=== PATIENT | male | born 1970 ===

== ENCOUNTER 2022-05-26 14:09 | Emergency (ER) | payer OTHER, SELFPAY ==
[2022-05-26 14:21] VITALS: BP 117/79; PULSE 103; RESP 16; TEMP 36; O2SAT 98
--- NOTE | 2022-05-26 15:14 | ED.URI ---
HPI - URI/Sore Throat General Chief Complaint: Upper Respiratory Infection Stated Complaint: Congestion Time Seen by Provider: 05/26/22 15:00 Source: patient, RN notes reviewed and old records reviewed Mode of arrival: ambulatory Limitations: no limitations History of Present Illness HPI Narrative: 52-year-old male presents to [facility] with 3 week duration of sinus congestion, sinuses feel plugged with complaints of headaches intermittently. Patient reports that he has history of sinus problems and infections. He states that he has been taking Tylenol, Silvina [place] cold, Sudafed, Claritin and Zyrtec OTC and also NyQuil at bedtime. Patient reports no know fevers. Patient reports that he has had sinus infections in the past. MD elicited complaint: rhinorrhea, nasal congestion and sinus pain Onset (ago): week(s) (3) Treatments prior to arrival: acetaminophen, cold medicine and other (Sudafed, claritin. Zyrtec) Related Data Home Medications Medication Instructions Recorded Confirmed aspirin 81 mg tablet 81 mg PO DAILY 05/26/22 05/26/22 cyclobenzaprine 10 mg tablet 10 mg PO DAILY 05/26/22 05/26/22 esomeprazole magnesium 20 mg 20 mg PO DAILY 05/26/22 05/26/22 capsule,delayed release (Nexium) fluoxetine 10 mg capsule (Prozac) 30 mg PO DAILY 05/26/22 05/26/22 Allergies Allergy/AdvReac Type Severity Reaction Status Date / Time Quinolones Allergy Severe ANAPHYLACTIC Verified 05/26/22 14:37 REACTION levofloxacin Allergy Unknown Unknown Unverified 05/26/22 14:37 Review of Systems Review of Systems: CONSTITUTIONAL: Denies fever, chills, or sweats. EYES: Denies visual changes, redness, or discharge. ENT: Reports no acute rhinorrhea but feels congestion and sinus pressure, no sore throat, or otalgia. CARDIOVASCULAR: Denies chest pain, palpitations, or edema. RESPIRATORY: Denies cough or dyspnea. GASTROINTESTINAL: Denies abdominal pain, nausea, vomiting, or diarrhea. GENITOURINARY: Denies dysuria or hematuria. SKIN: Denies rash or itching. MUSCULOSKELETAL: Denies back pain, joint pain, or myalgia. NEUROLOGIC: reports headache, numbness, or weakness. PSYCHIATRIC: Positive for anxiety or depression. All systems reviewed & are unremarkable except as noted in HPI and below PMFSH Past Medical History Medical History (Updated 06/01/22 @ 14:02 by Dianelys Lara NP) Anxiety and depression IBS (irritable bowel syndrome) Traumatic brain injury Surgical History Surgical History (Updated 06/01/22 @ 14:05 by Dianelys Lara NP) History of thoracic surgery Traumatic injury to right rib cage with screws and plate Hx of appendectomy Family History Family History (Updated 06/01/22 @ 14:06 by Dianelys Lara NP) Father Heart disease Diabetes mellitus Mother Diabetes mellitus Social History Social History (Updated 06/01/22 @ 14:06 by Dianelys Lara NP) Smoking status: Former smoker Alcohol intake: current Alcohol use details: social Substance use: current Substance use type: marijuana Gender identity (if verbalized by the patient): Male Comments At time of signature, agree with nursing past medical, surgical, social and family history. There is no relevant family history pertinent to the presenting complaint Exam Narrative: GENERAL: Well-appearing, well-nourished, and in no acute distress. HEAD: Normocephalic, atraumatic. EYES: PERRLA and EOMI. ENT: Nares with membranes red with some clear rhinorrhea no epistaxis. Mucous membranes moist.TM's normal with good light reflex, throat with some redness with post nasal drainage noted, positive for facial pressure and intermittent headache pain NECK: Supple.no lymphadenopathy CHEST: Clear to auscultation. No respiratory distress. SAO2 98% on room air HEART: Regular rate and rhythm. No murmur heard. Normal peripheral pulses. ABDOMEN: Soft, nontender, nondistended, normal active bowel sounds. EXTREMITIES: Normal range of motion. No edema. SKIN: War
== END 2022-05-26 15:33 | disposition home or self-care (01) ==
PROVIDERS: Emergency Provider Registered Nurse
DX: J01.40 Acute pansinusitis, unspecified (principal); Z79.82 Long term (current) use of aspirin
CPT/HCPCS: 99213; G0463

== ENCOUNTER 2022-08-31 19:10 | Emergency (ER) | payer OTHER, SELFPAY ==
[2022-08-31 19:17] VITALS: BP 117/84; PULSE 87; RESP 18; TEMP 36.7; O2SAT 96
[2022-08-31] MEDS: TETANUS,DIPHTHERIA,AC PERTUSSIS ADULT (0.5 ML) BOOSTRIX IM (20:22)
--- NOTE | 2022-08-31 20:37 | ED.WOUNDLAC ---
HPI - Wound/Laceration General Chief Complaint: Wound/Laceration Stated Complaint: Cut Finger Rt Hand Time Seen by Provider: 08/31/22 20:15 Source: patient Mode of arrival: ambulatory Limitations: no limitations History of Present Illness HPI narrative: Patient presents today with a laceration to his left 3rd finger after cutting it on a pine apple-core at home does prior to arrival. Currently rates his pain /10. He is not up-to-date on his tetanus vaccine. Denies numbness or tingling. He did clean the finger just after injury. Related Data Home Medications Medication Instructions Recorded Confirmed aspirin 81 mg tablet 81 mg PO DAILY 05/26/22 08/31/22 cyclobenzaprine 10 mg tablet 10 mg PO DAILY 05/26/22 08/31/22 esomeprazole magnesium 20 mg 20 mg PO DAILY 05/26/22 08/31/22 capsule,delayed release (Nexium) fluoxetine 10 mg capsule (Prozac) 30 mg PO DAILY 05/26/22 08/31/22 Allergies Allergy/AdvReac Type Severity Reaction Status Date / Time Quinolones Allergy Severe ANAPHYLACTIC Verified 05/26/22 14:37 REACTION levofloxacin Allergy Unknown Unknown Verified 08/31/22 20:25 Review of Systems Review of Systems: CONSTITUTIONAL: Denies body aches, fever, chills, or sweats. EYES: Denies visual changes, redness, or discharge. ENT: Denies rhinorrhea, congestion, sore throat, or otalgia. CARDIOVASCULAR: Denies chest pain, palpitations, or edema. RESPIRATORY: Denies cough or dyspnea. GASTROINTESTINAL: Denies abdominal pain, nausea, vomiting, or diarrhea. GENITOURINARY: Denies dysuria or hematuria. SKIN: Denies rash, itching. + right 2nd finger laceration MUSCULOSKELETAL: Denies back pain, joint pain, or myalgia. NEUROLOGIC: Denies headache, numbness, tingling, or weakness. PSYCH: Denies depression or anxiety. [facility] Past Medical History Medical History Anxiety and depression IBS (irritable bowel syndrome) Traumatic brain injury Surgical History Surgical History History of thoracic surgery Traumatic injury to right rib cage with screws and plate Hx of appendectomy Family History Family History Father Heart disease Diabetes mellitus Mother Diabetes mellitus Social History Social History Smoking status: Former smoker Alcohol intake: current Alcohol use details: social Substance use: current Substance use type: marijuana Gender identity (if verbalized by the patient): Male Comments At time of signature, I have reviewed and agree with nursing past medical, surgical, social and family history unless otherwise noted. Please see nursing chart for further information. There is no relevant family history pertinent to the presenting complaint Exam Narrative: GENERAL: Well-appearing, well-nourished, and in no acute distress. HEAD: Normocephalic, atraumatic. EYES: EOMI. No redness or drainage. Conjunctivae normal. ENT: Mucous membranes pink and moist. NECK: Normal AROM. CHEST: No respiratory distress. EXTREMITIES: Normal range of motion. No edema. SKIN: Warm, dry, no rash. Capillary refill normal. Normal skin turgor. Right 2nd finger:4 cm full thickness flap laceration to the lateral pad of the finger. Distal sensation intact. Capillary refill normal. Full range of motion. Mild active bleeding. NEURO: No focal deficits. Alert and oriented x3. Gait steady. PSYCH: Normal affect. No signs of depression or anxiety. Course Course Level of Care: Express Care Visit Vital Signs Vital signs: Vital Signs Temperature 98.0 F 08/31/22 19:17 Pulse Rate 87 08/31/22 19:17 Respiratory Rate 18 08/31/22 19:17 Blood Pressure 117/84 08/31/22 19:17 Pulse Oximetry 96 08/31/22 19:17 Oxygen Delivery Room Air 08/31/22 19:17 [place]
== END 2022-08-31 21:05 | disposition home or self-care (01) ==
PROVIDERS: Emergency Provider Nurse Practitioner
DX: S61.210A Laceration without foreign body of right index finger without damage to nail, initial encounter (principal); W27.8XXA Contact with other nonpowered hand tool, initial encounter; Z23 Encounter for immunization; Z87.891 Personal history of nicotine dependence; F41.9 Anxiety disorder, unspecified; F32.A Depression, unspecified
CPT/HCPCS: 12002; 90471; 90715; 99212; G0463